=== PATIENT | female | born 1970 | race Caucasian/White ===

== ENCOUNTER 2018-08-10 17:42 | Emergency (ER) | payer OTHER ==
[2018-08-10] MEDS ORDERED: SODIUM CHLORIDE 0.9% 1,000 ML IV ONE (18:19)
[2018-08-10] MEDS ORDERED: ONDANSETRON 4 MG/2 ML VIAL IVP STA (18:19)
[2018-08-10 18:20] LABS: BILIRUBIN,URINE NEGATIVE (NEGATIVE); GLUCOSE, URINE (UA) NEGATIVE (NEGATIVE); KETONES,URINE (UA) NEGATIVE (NEGATIVE); LEUKOCYTE ESTERASE, URINE TRACE (NEGATIVE); NITRITE,URINE NEGATIVE (NEGATIVE); OCCULT BLOOD,URINE NEGATIVE (NEGATIVE); PROTEIN,URINE NEGATIVE (NEGATIVE); UROBILINOGEN,URINE 0.2 (NORMAL) E.U./dL (NORMAL)
[2018-08-10] MEDS ORDERED: FAMOTIDINE 20 MG/50 ML 50 ML IV ONE (18:21)
--- NOTE | 2018-08-10 18:27 | ED Physician Documentation ---
History of Present Illness - Stated complaint Stated Complaint: NAUSEA/DIZZINESS - Chief complaint Chief Complaint: Abd Pain - History obtained from History obtained from: Patient - History of Present Illness Timing: Last night Pain level max: 2 Pain level now: 2 Quality: Burning Radiates to: From throat down the epigastric area Improved by: Nothing Worsened by: nothing Associated symptoms: Lightheadedness, nausea, constipation 2 days - Additonal information Additional information: 48-year-old female with history of diabetes, high cholesterol, and gastric bypass 4 months ago here with complain of feeling nausea and lightheaded since last night associated with burning sensation in the mouth that radiates down to the epigastric area. Patient stated that he has not had any bowel movement the past 2 days. She denies fever, diarrhea, vomiting, trauma, travel, recent illnesses or sick contact. Review of Systems Ten Systems: 10 systems reviewed and negative Constitutional: denies: Fever, Chills Nose: denies: Rhinorrhea / runny nose Cardiac: denies: Chest pain / pressure Respiratory: denies: Dyspnea, Cough GI: reports: Abdominal Pain, Nausea, Constipation. denies: Vomiting, Diarrhea : denies: Dysuria, Frequency, Hematuria, Discharge Musculoskeletal: reports: Back pain (Pointing at the left lateral lower lumbar area). denies: Extremity pain Neurologic: denies: Generalized weakness PD PAST MEDICAL HISTORY - Past Medical History Past Medical History: Yes Cardiovascular: High cholesterol Endocrine/Autoimmune: Type 2 diabetes Psych: Depression, Anxiety - Past Surgical History Past Surgical History: Yes Ortho: Carpal Tunnel surgery /REGULATORY AFFAIRS SPEC: section, LEEP (Cervical surgery) - Present Medications Home Medications: Ambulatory Orders Medication Instructions Recorded Confirmed Atorvastatin [Lipitor] 08/10/18 Escitalopram Oxalate [Lexapro] 30 mg PO 08/10/18 Ondansetron Odt [Zofran] 4 mg TL Q6H PRN #10 tablet 08/10/18 Pantoprazole Sodium [Protonix] 08/10/18 hydrALAZINE [Apresoline] 08/10/18 08/10/18 metFORMIN [Glucophage] 1,000 mg BID 08/10/18 08/10/18 - Allergies Allergies/Adverse Reactions: Allergies Allergy/AdvReac Type Severity Reaction Status Date / Time Penicillins Allergy Hives Verified 08/10/18 17:49 trazodone Allergy Hives Verified 08/10/18 17:49 - Social History Does the pt smoke?: No Smoking Status: Never smoker Does the pt drink ETOH?: No Does the pt have substance abuse?: No - Immunizations Immunizations are current?: Yes PD ED PE NORMAL - Vitals Vital signs reviewed: Yes - General General: Alert and oriented X 3, No acute distress, Well developed/nourished - HEENT HEENT: PERRL, EOMI, Moist mucous membranes - Neck Neck: Supple, no meningeal sign - Cardiac Cardiac: RRR, No murmur - Respiratory Respiratory: No respiratory distress, Clear bilaterally - Abdomen Abdomen: Normal bowel sounds, Soft, Non tender, Non distended, No organomegaly - Back Back: No CVA TTP - Derm Derm: Warm and dry - Extremities Extremities: No deformity - Neuro Neuro: Alert and oriented X 3 - Psych Psych: Normal mood, Normal affect Results - Vitals Vitals: Vital Signs - 24 hr 08/10/18 08/10/18 17:46 21:03 Temperature 36.9 C 36.4 C L Heart Rate 69 50 L Respiratory 18 16 Rate Blood Pressure 148/76 H 114/69 O2 Saturation 98 98 Oxygen O2 Source Room air - Labs Labs: Laboratory Tests 08/10/18 08/10/18 08/10/18 18:00 18:00 18:30 WBC 7.2 RBC 4.61 Hgb 13.0 Hct 39.4 MCV 85.6 MCH 28.2 MCHC 33.0 RDW 16.4 H Plt Count 208 MPV 7.9 Neut # (Auto) 4.5 Lymph # (Auto) 2.3 Person # (Auto) 0.4 Eos # (Auto) 0.1 Baso # (Auto) 0.0 Absolute Nucleated RBC 0.00 Nucleated RBC % 0.1 Sodium Potassium Chloride Carbon Dioxide Anion Gap BUN Creatinine Estimated GFR (MDRD) Glucose Calcium Total Bilirubin AST ALT Alkaline Phosphatase Total Protein Albumin Globulin Albumin/Globulin Ratio Lipase HCG, Quant Urine Color YELLOW Urine Clarity CLOUDY Urine pH 6.0 Ur Specific [place] 1.025 1.025 Urine Protein NEGATIVE Urine Glucose (UA) NEGATIVE Urine Ketones NEGATIVE Urine Occult Blood NEGATIVE Urine Nitrite NEGATIVE Urine Bilirubin NEGATIVE Urine Urobilinogen 0.2 (NORMAL) Ur Leukocyte Esterase TRACE H Urine RBC 0-5 Urine WBC 0-3 Ur Squamous Epith Cells MOD Squamous H Urine Bacteria Few Ur Microscopic Review INDICATED Urine Culture Comments NOT INDICATED Urine HCG, Qual TNP 08/10/18 08/10/18 18:30 18:30 WBC RBC Hgb Hct MCV MCH MCHC RDW Plt Count MPV Neut # (Auto) Lymph # (Auto) Person # (Auto) Eos # (Auto) Baso # (Auto) Absolute Nucleated RBC Nucleated RBC % Sodium 137 Potassium 3.7 Chloride 103 Carbon Dioxide 27 Anion Gap 7.0 BUN 11 Creatinine 0.7 Estimated GFR (MDRD) 90 Glucose 93 Calcium 8.6 Total Bilirubin 0.5 AST 28 ALT 32 Alkaline Phosphatase 71 Total Protein 6.8 Albumin 4.4 Globulin 2.4 Albumin/Globulin Ratio 1.8 Lipase 35 HCG, Quant < 0.60 Urine Color Urine Clarity Urine pH Ur Specific [place] Urine Protein Urine Glucose (UA) Urine Ketones Urine Occult Blood Urine Nitrite Urine Bilirubin Urine Urobilinogen Ur Leukocyte Esterase Urine RBC Urine WBC Ur Squamous Epith Cells Urine Bacteria Ur Microscopic Review Urine Culture Comments Urine HCG, Qual PD MEDICAL DECISION MAKING - ED course Complexity details: re-evaluated patient (1Patient inform of CT scan results including additional findings on the spleen, adrenal gland, and lung atelectasis. Patient stated she is on antiulcer medication which she takes twice a day. States she has moved from [place] so she is looking. GI doctors able to manage her gastric bypass. Patient wants to go home on Zofran.), considered differential (Gastritis, GERD, pancreatitis, constipation, obstruction), d/w patient ([id number] updated on test results. She stated that her nausea is much better but still feels epigastric discomfort. She agreed to have a CT of the abdomen) Departure - Departure Disposition: 01 Home, Self Care Clinical Impression: Abdominal pain Qualifiers: Abdominal location: epigastric Qualified Code(s): R10.13 - Epigastric pain Condition: Stable Instructions: ED Abdominal Pain Unkn Cause Prescriptions: Ondansetron Odt [Zofran] 4 mg TL Q6H PRN #10 tablet PRN Reason: Nausea / Vomiting Comments: Follow-up with your primary doctor and GI doctor who is able to help you with managing your recent gastric bypass. Only take Zofran when really necessary for nausea. Continue your anti-ulcer medication. If worse return to the emergency.
[2018-08-10 18:28] LABS: CLARITY,URINE CLOUDY (CLEAR)
[2018-08-10 18:37] LABS: BACTERIA,URINE Few /HPF (None Seen); RBC,URINE 0-5 /HPF (0-5); SQUAMOUS EPITHELIAL CELL,UR MOD Squamous (<= Few)
[2018-08-10 19:06] LABS: BASOPHILS % (AUTO) 0.4 %; EOSINOPHILS # (AUTO) 0.1 10^3/uL (0.0-0.7); LYMPHOCYTES # (AUTO) 2.3 10^3/uL (1.5-3.5); LYMPHOCYTES % (AUTO) 31.3 %; MEAN CORPUSCULAR HEMOGLOBIN 28.2 pg (27.0-31.0); MEAN CORPUSCULAR VOLUME 85.6 fL (81.0-99.0); MEAN PLATELET VOLUME 7.9 fL (7.9-10.8); MONOCYTES # (AUTO) 0.4 10^3/uL (0.0-1.0); MONOCYTES % (AUTO) 5.1 %; NEUTROPHILS # (AUTO) 4.5 10^3/uL (1.5-6.6); NEUTROPHILS % (AUTO) 62.2 %; PLT - PLATELET COUNT 208 10^3/uL (130-450); RED BLOOD COUNT 4.61 10^6/uL (4.20-5.40); RED CELL DISTRIBUTION WIDTH 16.4 % (12.0-15.0); WHITE BLOOD COUNT 7.2 x10^3/uL (4.8-10.8)
[2018-08-10 19:21] LABS: ALBUMIN 4.4 g/dL (3.2-5.5); ALBUMIN/GLOBULIN RATIO 1.8 (1.0-2.2); BILIRUBIN,TOTAL 0.5 mg/dL (0.2-1.0); CALCIUM 8.6 mg/dL (8.5-10.3); CREATININE 0.7 mg/dL (0.4-1.0); TOTAL PROTEIN 6.8 g/dL (6.7-8.2)
[2018-08-10] MEDS ORDERED: IOPAMIDOL-300 100 ML VIAL ONE (21:12)
--- NOTE | 2018-08-10 21:57 | CT Report ---
Reason: PAIN Procedure Date: 08/10/2018 Accession Number: [id number] / [id number] Procedure: CT - Abdomen/Pelvis W/ CPT Code: FULL RESULT: EXAM: CT ABDOMEN AND PELVIS EXAM DATE: 08/10/2018 09:36 PM. CLINICAL HISTORY: Abdominal pain. Patient is status post gastric bypass 4 months prior to this examination. COMPARISONS: None. TECHNIQUE: Routine helical CT imaging was performed through the abdomen and pelvis. IV contrast: 100 mL of Isovue-300. Enteric contrast: No. Reconstructions: Coronal and sagittal. In accordance with CT protocol optimization, one or more of the following dose reduction techniques were utilized for this exam: automated exposure control, adjustment of mA and/or KV based on patient size, or use of iterative reconstructive technique. FINDINGS: Lung Bases: Small left pleural effusion with passive atelectasis in the left lung base. The remainder of the lung bases is clear. Liver: Normal. No masses. Gallbladder/Bile Ducts: Unremarkable. Spleen: Small superior subcapsular splenic cysts measuring 9 mm and 4 mm in diameter. Otherwise, normal enhancement. Pancreas: Normal. Adrenal Glands: Right adrenal adenoma measuring 2.7 cm in diameter (series 3 image 17). Kidneys: Normal. No masses or hydronephrosis. Peritoneal Cavity/Bowel: Postsurgical changes of gastric bypass. Greater than physiologic stool throughout the colon, mild in amount. No bowel obstruction. No free fluid, free air or adenopathy. No masses or acute inflammatory process. I do not identify the appendix. Pelvic Organs: The bladder is decompressed. Uterus and adnexal structures are unremarkable. No free fluid in the pelvis. Vasculature: No aneurysms or other significant abnormality. Bones: No significant abnormality. Other: None. IMPRESSION: 1. Postsurgical changes of gastric bypass. 2. Absent appendix. 3. Small subcapsular splenic cysts. 4. Small left pleural effusion with passive atelectasis in the left lower lobe. 5. Right adrenal adenoma measuring 2.7 cm in diameter. RADIA
[2018-08-10 22:30] VITALS: BP 131/66
[2018-08-10] MEDS ORDERED: IOPAMIDOL-300 100 ML VIAL IVP ONE (22:38)
== END 2018-08-10 22:34 | disposition home or self-care (01) ==
LOC: ED 17:42
DX: R10.13 Epigastric pain (principal); E11.9 Type 2 diabetes mellitus without complications; Z98.84 Bariatric surgery status; Z79.84 Long term (current) use of oral hypoglycemic drugs
CPT/HCPCS: 36415; 74177; 80053; 81001; 83690; 84702; 85025; 96365; 96375; 99283; Q9967; 81003; 81025; 87086

== ENCOUNTER 2018-09-02 20:12 | Emergency (ER) | payer OTHER ==
[2018-09-02 20:19] VITALS: BP 139/74
[2018-09-02] MEDS ORDERED: NITROFURANTOIN MACRO 100 MG CAPSULE PO STA (20:23)
[2018-09-02] MEDS ORDERED: PHENAZOPYRIDINE 100 MG TABLET PO STA (20:23)
[2018-09-02 20:24] LABS: BILIRUBIN,URINE NEGATIVE (NEGATIVE); GLUCOSE, URINE (UA) NEGATIVE (NEGATIVE); KETONES,URINE (UA) NEGATIVE (NEGATIVE); LEUKOCYTE ESTERASE, URINE SMALL (NEGATIVE); NITRITE,URINE NEGATIVE (NEGATIVE); OCCULT BLOOD,URINE MODERATE (NEGATIVE); PH,URINE 5.5 PH (5.0-7.5); PROTEIN,URINE NEGATIVE (NEGATIVE); UROBILINOGEN,URINE 0.2 (NORMAL) E.U./dL (NORMAL)
--- NOTE | 2018-09-02 20:25 | ED Physician Documentation ---
PD HPI FEMALE - Stated complaint Stated Complaint: FEMALE - Chief complaint Chief Complaint: UTI - History obtained from History obtained from: Patient - History of Present Illness Timing - onset: Today Timing - duration: Days (1) Timing - details: Gradual onset Pain level max: 5 Pain level max: 4 Associated symptoms: Dysuria, Urinary frequency, Hematuria. No: Fever, Abdominal pain, Back pain, Vaginal pain, Vaginal bleeding, Vaginal discharge Contributing factors: No: Similar symptoms before: Diagnosis (UTI) Review of Systems Constitutional: denies: Fever, Chills GI: denies: Abdominal Pain, Vomiting Skin: denies: Rash PD PAST MEDICAL HISTORY - Past Medical History Past Medical History: Yes Cardiovascular: High cholesterol Respiratory: None Neuro: None Endocrine/Autoimmune: Type 2 diabetes GI: None FORECLOSURE SPECIALIST: None : None HEENT: None Psych: Depression, Anxiety Musculoskeletal: None Derm: None - Past Surgical History Past Surgical History: Yes Ortho: Carpal Tunnel surgery /FORECLOSURE SPECIALIST: section, LEEP (Cervical surgery) - Present Medications Home Medications: Ambulatory Orders Medication Instructions Recorded Confirmed Atorvastatin [Lipitor] 08/10/18 Escitalopram Oxalate [Lexapro] 30 mg PO 08/10/18 Ondansetron Odt [Zofran] 4 mg TL Q6H PRN #10 tablet 08/10/18 Pantoprazole Sodium [Protonix] 08/10/18 hydrALAZINE [Apresoline] 08/10/18 08/10/18 metFORMIN [Glucophage] 1,000 mg BID 08/10/18 08/10/18 Nitrofurantoin Monohyd/M-Cryst 100 mg PO BID #10 capsule 09/02/18 [Macrobid 100 mg Capsule] Phenazopyridine HCl [Pyridium] 200 mg PO TID PRN #6 tablet 09/02/18 - Allergies Allergies/Adverse Reactions: Allergies Allergy/AdvReac Type Severity Reaction Status Date / Time Iodinated Contrast- Oral and Allergy Rash Verified 09/02/18 20:20 IV Dye Penicillins Allergy Hives Verified 09/02/18 20:20 trazodone Allergy Hives Verified 09/02/18 20:20 - Social History Does the pt smoke?: No Smoking Status: Never smoker Does the pt drink ETOH?: No Does the pt have substance abuse?: No - Immunizations Immunizations are current?: Yes - POLST Patient has POLST: No PD ED PE NORMAL - Vitals Vital signs reviewed: Yes - General General: Alert and oriented X 3, No acute distress - HEENT HEENT: Moist mucous membranes - Neck Neck: Supple, no meningeal sign - Cardiac Cardiac: RRR - Respiratory Respiratory: No respiratory distress, Clear bilaterally - Abdomen Abdomen: Soft, Non tender, Non distended - Back Back: No CVA TTP - Derm Derm: No rash - Neuro Neuro: Alert and oriented X 3 Results - Vitals Vitals: Vital Signs - 24 hr 09/02/18 09/02/18 09/02/18 20:18 20:20 20:30 Temperature 36.7 C Heart Rate 62 Respiratory 16 17 17 Rate Blood Pressure 139/74 H O2 Saturation 98 Oxygen O2 Source Room air - Labs Labs: Laboratory Tests 09/02/18 09/02/18 20:18 20:18 Urine Color YELLOW Urine Clarity CLEAR Urine pH 5.5 Ur Specific [place] 1.020 1.020 Urine Protein NEGATIVE Urine Glucose (UA) NEGATIVE Urine Ketones NEGATIVE Urine Occult Blood MODERATE H Urine Nitrite NEGATIVE Urine Bilirubin NEGATIVE Urine Urobilinogen 0.2 (NORMAL) Ur Leukocyte Esterase SMALL H Urine RBC 0-5 Urine WBC 6-10 H Ur Squamous Epith Cells RARE Squamous Urine Bacteria Few Ur Microscopic Review INDICATED Urine Culture Comments INDICATED Urine HCG, Qual NEGATIVE PD MEDICAL DECISION MAKING - ED course Complexity details: considered differential, d/w patient ED course: Patient with a UTI. Will place on Pyridium and Macrobid. We will have her follow-up with her doctor for further care. No pyelonephritis. No fevers. No sepsis. Patient counseled regarding signs and symptoms for which I believe and urgent re-evaluation would be necessary. Patient with good understanding of and agreement to plan and is comfortable going home at this time This document was made in part using voice recognition software. While efforts are made to proofread this document, sound alike and grammatical errors may occur. Departure - Departure Disposition: 01 Home, Self Care Clinical Impression: Urinary tract infection Qualifiers: Urinary tract infection type: acute cystitis Hematuria presence: with hematuria Qualified Code(s): N30.01 - Acute cystitis with hematuria Condition: Good Instructions: ED UTI Cystitis Female Follow-Up: Eduardo Cam ARNP [Primary Care Provider] - (if not better after treatment) Prescriptions: Nitrofurantoin Monohyd/M-Cryst [Macrobid 100 mg Capsule] 100 mg PO BID #10 capsule Phenazopyridine HCl [Pyridium] 200 mg PO TID PRN #6 tablet PRN Reason: dysuria Comments: Take all antibiotics until gone. Return if you worsen. Discharge Date/Time: 09/02/18 20:30
[2018-09-02 20:31] LABS: CLARITY,URINE CLEAR (CLEAR); HCG UR QUAL NEGATIVE
[2018-09-02 20:32] LABS: BACTERIA,URINE Few /HPF (None Seen); RBC,URINE 0-5 /HPF (0-5); SQUAMOUS EPITHELIAL CELL,UR RARE Squamous (<= Few)
== END 2018-09-02 20:30 | disposition home or self-care (01) ==
LOC: ED 20:12
DX: N30.01 Acute cystitis with hematuria (principal); E11.9 Type 2 diabetes mellitus without complications
CPT/HCPCS: 81001; 81025; 87086; 87181; 99283; A9270; 81003

== ENCOUNTER 2018-10-05 07:24 | Day surgery (SDC) | payer OTHER ==
[~2018-10-05 07:24] MED LIST: LACTATED RINGERS 1,000 ML IV ONE
[2018-10-05 07:47] LABS: HCG UR QUAL NEGATIVE
[2018-10-05] MEDS ORDERED: LIDO GARGLE 30 ML BOTTLE ONE (08:25)
[2018-10-05] MEDS ORDERED: MIDAZOLAM 2 MG/2 ML VIAL IVP ONE (09:00)
[2018-10-05] MEDS ORDERED: LACTATED RINGERS 1,000 ML IV ONE ×2 (09:00→09:36)
[2018-10-05] MEDS ORDERED: fentaNYL 250 MCG/5 ML VIAL IVP ONE (09:00)
[2018-10-05] MEDS ORDERED: LIDO GARGLE 30 ML BOTTLE PO ONE (09:07)
[2018-10-05 10:02] VITALS: BP 112/62
== END 2018-10-05 07:25 | disposition home or self-care (01) ==
LOC: SDS 07:24
PROVIDERS: ATTEND Internal Medicine Gastroenterology
PROC: 0DBN8ZZ Excision of Sigmoid Colon, Via Natural or Artificial Opening Endoscopic (ICD-10-PCS; 2018-10-05)
PROC: 0DB68ZZ Excision of Stomach, Via Natural or Artificial Opening Endoscopic (ICD-10-PCS; 2018-10-05)
PROC: 0DBM8ZZ Excision of Descending Colon, Via Natural or Artificial Opening Endoscopic (ICD-10-PCS; principal; 2018-10-05 08:30)
PROC: 0DBK8ZZ Excision of Ascending Colon, Via Natural or Artificial Opening Endoscopic (ICD-10-PCS; 2018-10-05 08:30)
DX: K31.7 Polyp of stomach and duodenum (principal); K63.5 Polyp of colon; D12.2 Benign neoplasm of ascending colon; D12.5 Benign neoplasm of sigmoid colon; R10.13 Epigastric pain; K92.1 Melena; Z98.84 Bariatric surgery status
CPT/HCPCS: 43239; 45380; 45385; 81025; A9270; J3010; J7120

== ENCOUNTER 2018-11-11 09:18 | Emergency (ER) | payer OTHER ==
[2018-11-11 09:33] VITALS: BP 135/74
[2018-11-11 09:45] LABS: BILIRUBIN,URINE NEGATIVE (NEGATIVE); GLUCOSE, URINE (UA) NEGATIVE (NEGATIVE); KETONES,URINE (UA) NEGATIVE (NEGATIVE); LEUKOCYTE ESTERASE, URINE SMALL (NEGATIVE); NITRITE,URINE POSITIVE (NEGATIVE); OCCULT BLOOD,URINE TRACE-INTA (NEGATIVE); PH,URINE 6.5 PH (5.0-7.5); PROTEIN,URINE NEGATIVE (NEGATIVE); UROBILINOGEN,URINE 0.2 (NORMAL) E.U./dL (NORMAL)
[2018-11-11 09:47] LABS: CLARITY,URINE SL. CLOUDY (CLEAR); HCG UR QUAL NEGATIVE
[2018-11-11 09:58] LABS: BACTERIA,URINE Few /HPF (None Seen); CRYSTALS,URINE 0-2 Calcium Oxalate /LPF; RBC,URINE 0-5 /HPF (0-5); SQUAMOUS EPITHELIAL CELL,UR MOD Squamous (<= Few)
--- NOTE | 2018-11-11 10:27 | ED Physician Documentation ---
PD HPI FEMALE - Stated complaint Stated Complaint: FEM - Chief complaint Chief Complaint: UTI - History obtained from History obtained from: Patient - History of Present Illness Timing - onset: Enter time (0600), Today Timing - duration: Hours Timing - details: Abrupt onset, Still present Associated symptoms: Dysuria, Urinary frequency Contributing factors: No: Similar symptoms before: Diagnosis (UTI) Recently seen: Not recently seen - Additional information Additional information: 48-year-old female with a history of bariatric surgery and frequent urinary tract infections has developed urinary symptoms again this morning. She is last had an infection about 1 month ago and this was not sensitive to Macrobid. She required a prescription for Septra. She denies any nausea with this she denies any flank pain. Review of Systems Constitutional: denies: Fever, Chills, Myalgias Eyes: denies: Decreased vision Ears: denies: Ear pain Nose: denies: Congestion Throat: denies: Sore throat Respiratory: denies: Cough GI: denies: Abdominal Pain, Nausea, Vomiting, Constipation, Diarrhea : reports: Dysuria, Frequency Skin: denies: Rash Musculoskeletal: denies: Neck pain, Back pain, Extremity pain Neurologic: denies: Generalized weakness, Focal weakness, Numbness PD PAST MEDICAL HISTORY - Past Medical History Past Medical History: Yes Cardiovascular: High cholesterol Respiratory: None Neuro: None Endocrine/Autoimmune: Type 2 diabetes GI: None CLINICAL CODER: None : None HEENT: None Psych: Depression, Anxiety, Panic attacks Musculoskeletal: None Derm: None - Past Surgical History Past Surgical History: Yes Ortho: Carpal Tunnel surgery /CLINICAL CODER: section HEENT: Tonsil/Adenoidectomy - Present Medications Home Medications: Ambulatory Orders Medication Instructions Recorded Confirmed Atorvastatin [Lipitor] 10 mg PO DAILY 08/10/18 10/05/18 Escitalopram Oxalate [Lexapro] 30 mg PO DAILY 08/10/18 10/05/18 Ondansetron Odt [Zofran] 4 mg TL Q6H PRN #10 tablet 08/10/18 10/05/18 Pantoprazole Sodium [Protonix] 20 mg PO DAILY 08/10/18 10/05/18 RX: hydrALAZINE [Apresoline] 10 mg PO DAILY 08/10/18 10/05/18 RX: metFORMIN [Glucophage] 1,000 mg PO BID 08/10/18 10/05/18 Phenazopyridine HCl [Pyridium] 200 mg PO TID PRN #6 tablet 09/02/18 10/05/18 Sulfamethoxazole/Trimethoprim 1 each PO BID #10 tablet 11/11/18 [Sulfamethoxazole-Tmp Ds Tablet] - Allergies Allergies/Adverse Reactions: Allergies Allergy/AdvReac Type Severity Reaction Status Date / Time Iodinated Contrast- Oral and Allergy Rash Verified 11/11/18 09:33 IV Dye Penicillins Allergy Hives Verified 11/11/18 09:33 trazodone Allergy Hives Verified 11/11/18 09:33 - Social History Does the pt smoke?: No Smoking Status: Never smoker Does the pt drink ETOH?: No Does the pt have substance abuse?: No - Immunizations Immunizations are current?: Yes - POLST Patient has POLST: No PD ED PE NORMAL - Vitals Vital signs reviewed: Yes (hypertensive) - General General: Alert and oriented X 3, No acute distress, Well developed/nourished - HEENT HEENT: Atraumatic, PERRL - Neck Neck: Supple, no meningeal sign - Respiratory Respiratory: No respiratory distress - Back Back: No CVA TTP, No spinal TTP - Derm Derm: Normal color, Warm and dry, No rash - Extremities Extremities: No deformity, No edema - Neuro Neuro: Alert and oriented X 3, industrial safety and health manager 2-12 intact, No motor deficit, No sensory deficit, Normal speech Eye Opening: Spontaneous Motor: Obeys Commands Verbal: Oriented GCS Score: 15 - Psych Psych: Normal mood, Normal affect Results - Vitals Vitals: Vital Signs - 24 hr 11/11/18 09:30 Temperature 36.3 C L Heart Rate 98 Respiratory 14 Rate Blood Pressure 135/74 H O2 Saturation 97 Oxygen O2 Source Room air - Labs Labs: Laboratory Tests 11/11/18 11/11/18 09:24 09:24 Urine Color YELLOW Urine Clarity [place]. CLOUDY Urine pH 6.5 Ur Specific [place] 1.025 1.025 Urine Protein NEGATIVE Urine Glucose (UA) NEGATIVE Urine Ketones NEGATIVE Urine Occult Blood TRACE-INTA Urine Nitrite POSITIVE H Urine Bilirubin NEGATIVE Urine Urobilinogen 0.2 (NORMAL) Ur Leukocyte Esterase SMALL H Urine RBC 0-5 Urine WBC >25 H Ur Squamous Epith Cells MOD Squamous H Urine Crystals 0-2 Calcium Oxalate Urine Bacteria Few Ur Microscopic Review INDICATED Urine Culture Comments NOT INDICATED Urine HCG, Qual NEGATIVE PD MEDICAL DECISION MAKING - ED course Complexity details: reviewed results, re-evaluated patient, considered differential, d/w patient ED course: 48-year-old female with history of urinary tract infections has another infection. She does not appear to have any evidence of Wai. Departure - Departure Disposition: Home, Self Care Clinical Impression: Urinary tract infection Condition: Stable Instructions: ED UTI Cystitis Female Follow-Up: Eduardo Cam ARNP [Primary Care Provider] - Prescriptions: Sulfamethoxazole/Trimethoprim [Sulfamethoxazole-Tmp Ds Tablet] 1 each PO BID #10 tablet Discharge Date/Time: 11/11/18 10:30
== END 2018-11-11 10:30 | disposition home or self-care (01) ==
LOC: ED 09:18
DX: N39.0 Urinary tract infection, site not specified (principal); Z87.440 Personal history of urinary (tract) infections; Z98.84 Bariatric surgery status
CPT/HCPCS: 81001; 81003; 81025; 87086; 99283

== ENCOUNTER 2019-01-03 13:02 | Emergency (ER) | payer OTHER ==
[2019-01-03] MEDS ORDERED: PHENAZOPYRIDINE 100 MG TABLET PO STA (13:07)
[2019-01-03] MEDS ORDERED: SULFAMETH/TRIMETH DS 800/160 MG TABLET PO STA (13:07)
[2019-01-03 13:08] VITALS: BP 138/79
--- NOTE | 2019-01-03 13:11 | ED Physician Documentation ---
PD HPI FEMALE - Stated complaint Stated Complaint: UTI - History obtained from History obtained from: Patient - History of Present Illness Timing - onset: Today Timing - duration: Days (1) Timing - details: Abrupt onset Pain level max: 2 Pain level max: 1 Associated symptoms: Dysuria, Urinary frequency. No: Fever, Abdominal pain, Back pain, Pelvic pain Contributing factors: No: , control, Oral contraceptive, Depo, IUD, Condoms, Tubal ligation, Hysterectomy, Sexually active, Not sexually active, Exposed to STD Similar symptoms before: Diagnosis (UTI) Recently seen: Not recently seen Review of Systems Constitutional: denies: Fever Cardiac: denies: Chest pain / pressure Respiratory: denies: Cough GI: denies: Vomiting, Diarrhea : reports: Dysuria, Frequency, Hesitancy. denies: Now EGA Skin: denies: Rash PD PAST MEDICAL HISTORY - Past Medical History Cardiovascular: High cholesterol Respiratory: None Neuro: None Endocrine/Autoimmune: Type 2 diabetes GI: None HALFTONE OPERATOR: None : None HEENT: None Psych: Depression, Anxiety, Panic attacks Musculoskeletal: None Derm: None - Past Surgical History Past Surgical History: Yes Ortho: Carpal Tunnel surgery /HALFTONE OPERATOR: section HEENT: Tonsil/Adenoidectomy - Present Medications Home Medications: Ambulatory Orders Medication Instructions Recorded Confirmed Atorvastatin [Lipitor] 10 mg PO DAILY 08/10/18 10/05/18 Escitalopram Oxalate [Lexapro] 30 mg PO DAILY 08/10/18 10/05/18 Ondansetron Odt [Zofran] 4 mg TL Q6H PRN #10 tablet 08/10/18 10/05/18 Pantoprazole Sodium [Protonix] 20 mg PO DAILY 08/10/18 10/05/18 hydrALAZINE [Apresoline] 10 mg PO DAILY 08/10/18 10/05/18 metFORMIN [Glucophage] 1,000 mg PO BID 08/10/18 10/05/18 Phenazopyridine HCl [Pyridium] 200 mg PO TID PRN #6 tablet 09/02/18 10/05/18 Sulfamethoxazole/Trimethoprim 1 each PO BID #10 tablet 11/11/18 [Sulfamethoxazole-Tmp Ds Tablet] Phenazopyridine HCl [Pyridium] 200 mg PO TID PRN #6 tablet 01/03/19 Sulfamethox/Trimeth 800/160 1 each PO BID #10 tablet 01/03/19 [Bactrim Ds 800/160] - Allergies Allergies/Adverse Reactions: Allergies Allergy/AdvReac Type Severity Reaction Status Date / Time Iodinated Contrast- Oral and Allergy Rash Verified 11/11/18 09:33 IV Dye Penicillins Allergy Hives Verified 11/11/18 09:33 trazodone Allergy Hives Verified 11/11/18 09:33 - Social History Does the pt smoke?: No Smoking Status: Never smoker Does the pt drink ETOH?: No Does the pt have substance abuse?: No - Immunizations Immunizations are current?: Yes - POLST Patient has POLST: No PD ED PE NORMAL - Vitals Vital signs reviewed: Yes - General General: Alert and oriented X 3, No acute distress - HEENT HEENT: Moist mucous membranes - Neck Neck: Supple, no meningeal sign - Abdomen Abdomen: Soft, Non tender, Non distended - Back Back: No CVA TTP - Derm Derm: Warm and dry - Neuro Neuro: Alert and oriented X 3 Results - Vitals Vitals: Vital Signs - 24 hr 01/03/19 13:05 Temperature 36.6 C Heart Rate 87 Respiratory 16 Rate Blood Pressure 138/79 H O2 Saturation 100 Oxygen O2 Source Room air - Labs Labs: Laboratory Tests 01/03/19 13:12 Urine Color YELLOW Urine Clarity CLEAR Urine pH 6.0 Ur Specific [place] >=1.030 H Urine Protein NEGATIVE Urine Glucose (UA) NEGATIVE Urine Ketones NEGATIVE Urine Occult Blood TRACE-LYSE Urine Nitrite NEGATIVE Urine Bilirubin NEGATIVE Urine Urobilinogen 0.2 (NORMAL) Ur Leukocyte Esterase SMALL H Ur Microscopic Review INDICATED Urine Culture Comments Not Reportable Urine HCG, Qual NEGATIVE PD MEDICAL DECISION MAKING - ED course Complexity details: reviewed results, re-evaluated patient, considered differential, d/w patient ED course: 48-year-old female with a UTI. She states that Bactrim has worked in the past and the Macrobid has not. She is allergic to penicillin. Will place on Pyridium and Bactrim and follow-up with her doctor if she fails to improve. Patient counseled regarding signs and symptoms for which I believe and urgent re-evaluation would be necessary. Patient with good understanding of and agreement to plan and is comfortable going home at this time This document was made in part using voice recognition software. While efforts are made to proofread this document, sound alike and grammatical errors may occur. Patient is well-appearing, nontoxic. Afebrile. No evidence of pyelonephritis. Departure - Departure Disposition: 01 Home, Self Care Clinical Impression: Urinary tract infection Qualifiers: Urinary tract infection type: acute cystitis Hematuria presence: without hematuria Qualified Code(s): N30.00 - Acute cystitis without hematuria Condition: Good Instructions: ED UTI Cystitis Female Follow-Up: Eduardo Cam ARNP [Primary Care Provider] - As Needed Prescriptions: Phenazopyridine HCl [Pyridium] 200 mg PO TID PRN #6 tablet PRN Reason: dysuria Sulfamethox/Trimeth 800/160 [Bactrim Ds 800/160] 1 each PO BID #10 tablet Comments: Take all antibiotics until gone. Return if you worsen. Follow-up with your doctor for further care. Discharge Date/Time: 01/03/19 13:14
[2019-01-03 13:33] LABS: BILIRUBIN,URINE NEGATIVE (NEGATIVE); GLUCOSE, URINE (UA) NEGATIVE (NEGATIVE); KETONES,URINE (UA) NEGATIVE (NEGATIVE); LEUKOCYTE ESTERASE, URINE SMALL (NEGATIVE); NITRITE,URINE NEGATIVE (NEGATIVE); OCCULT BLOOD,URINE TRACE-LYSE (NEGATIVE); PROTEIN,URINE NEGATIVE (NEGATIVE); UROBILINOGEN,URINE 0.2 (NORMAL) E.U./dL (NORMAL)
[2019-01-03 13:36] LABS: CLARITY,URINE CLEAR (CLEAR); HCG UR QUAL NEGATIVE
[2019-01-03 13:55] LABS: BACTERIA,URINE Many /HPF (None Seen); SQUAMOUS EPITHELIAL CELL,UR FEW Squamous (<= Few)
== END 2019-01-03 13:14 | disposition home or self-care (01) ==
LOC: ED 13:02
DX: N30.00 Acute cystitis without hematuria (principal); E78.00 Pure hypercholesterolemia, unspecified; E11.9 Type 2 diabetes mellitus without complications
CPT/HCPCS: 81001; 81025; 87077; 87086; 87181; 99283; A9270; 81003

== ENCOUNTER 2019-02-18 14:22 | Observation (INO) | payer BC, OTHER ==
--- NOTE | 2019-02-18 14:26 | ED Physician Documentation ---
PD HPI ABD PAIN - Stated complaint Stated Complaint: ABD PX - History obtained from History obtained from: Patient - History of Present Illness Timing - onset: Today (48-year-old woman who had gastric bypass about a year ago in [place] presents with sudden right upper quadrant pain starting after lunch today. She is been in moderate to severe pain for about 2 hours now. No history of gallstones, she did not have a cholecystectomy during her bypass.) Review of Systems Ten Systems: 10 systems reviewed and negative Constitutional: reports: Reviewed and negative Cardiac: reports: Reviewed and negative Respiratory: reports: Reviewed and negative PD PAST MEDICAL HISTORY - Past Medical History Cardiovascular: High cholesterol Respiratory: None Neuro: None Endocrine/Autoimmune: Type 2 diabetes GI: None TEAM OTR TRUCK DRIVER: None : None HEENT: None Psych: Depression, Anxiety, Panic attacks Musculoskeletal: None Derm: None - Past Surgical History Past Surgical History: Yes Ortho: Carpal Tunnel surgery /TEAM OTR TRUCK DRIVER: section HEENT: Tonsil/Adenoidectomy - Present Medications Home Medications: Ambulatory Orders Medication Instructions Recorded Confirmed Atorvastatin [Lipitor] 10 mg PO DAILY 08/10/18 02/18/19 Pantoprazole Sodium [Protonix] 20 mg PO DAILY 08/10/18 02/18/19 hydrALAZINE [Apresoline] 10 mg PO DAILY 08/10/18 02/18/19 - Allergies Allergies/Adverse Reactions: Allergies Allergy/AdvReac Type Severity Reaction Status Date / Time Iodinated Contrast- Oral and Allergy Rash Verified 02/18/19 14:30 IV Dye Penicillins Allergy Hives Verified 02/18/19 14:30 trazodone Allergy Hives Verified 02/18/19 14:30 - Social History Does the pt smoke?: No Smoking Status: Never smoker Does the pt drink ETOH?: No Does the pt have substance abuse?: No - Immunizations Immunizations are current?: Yes - POLST Patient has POLST: No PD ED PE NORMAL - Vitals Vital signs reviewed: Yes - General General: Alert and oriented X 3, No acute distress - HEENT HEENT: PERRL, EOMI - Neck Neck: Supple, no meningeal sign, No bony TTP - Cardiac Cardiac: RRR, No murmur - Respiratory Respiratory: No respiratory distress, Clear bilaterally - Abdomen Abdomen: Other (Soft with focal tenderness in the right upper quadrant and positive Pringle sign) - Back Back: No CVA TTP, No spinal TTP - Derm Derm: Normal color, Warm and dry - Extremities Extremities: No edema, No calf tenderness / cord - Neuro Neuro: Alert and oriented X 3, Normal speech - Psych Psych: Normal mood, Normal affect Results - Vitals Vitals: Vital Signs - 24 hr 02/18/19 02/18/19 02/18/19 14:28 16:40 18:53 Temperature 36.2 C L 36.9 C Heart Rate 77 71 64 Respiratory 16 12 16 Rate Blood Pressure 147/89 H 147/79 H 145/76 H O2 Saturation 98 95 95 Oxygen O2 Source Room air - Labs Labs: Laboratory Tests 02/18/19 02/18/19 02/18/19 14:35 14:35 15:38 WBC 5.8 RBC 4.18 L Hgb 12.0 Hct 35.5 L MCV 85.0 MCH 28.6 MCHC 33.7 RDW 13.2 Plt Count 243 MPV 7.8 L Neut # (Auto) 3.9 Lymph # (Auto) 1.6 Stafford # (Auto) 0.3 Eos # (Auto) 0.0 Baso # (Auto) 0.0 Absolute Nucleated RBC 0.00 Nucleated RBC % 0.0 Sodium 141 Potassium 4.1 Chloride 102 Carbon Dioxide 29 Anion Gap 10.0 BUN 11 Creatinine 0.6 Estimated GFR (MDRD) 107 Glucose 101 H Calcium 8.8 Total Bilirubin 0.5 AST 56 H ALT 104 H Alkaline Phosphatase 93 Total Protein 7.0 Albumin 4.3 Globulin 2.7 Albumin/Globulin Ratio 1.6 Lipase 40 Urine Color YELLOW Urine Clarity CLEAR Urine pH 7.0 Ur Specific Cartwright 1.010 Urine Protein NEGATIVE Urine Glucose (UA) NEGATIVE Urine Ketones NEGATIVE Urine Occult Blood TRACE-INTA Urine Nitrite NEGATIVE Urine Bilirubin NEGATIVE Urine Urobilinogen 0.2 (NORMAL) Ur Leukocyte Esterase NEGATIVE Ur Microscopic Review NOT INDICATED Urine Culture Comments NOT INDICATED - Rads (name of study) RUQ sono Radiology: EMP read contemporaneously (3x4mm gallbaldder polyp. no gallstones) Ct A/P with IV and PO contrast Radiology: EMP read contemporaneously (Stable adrenal adenoma and chgs c/w gastric bypass, NAD) PD MEDICAL DECISION MAKING - ED course ED course: 48-year-old woman with severe right upper quadrant pain concerning for biliary etiology. Her ultrasound was negative. Labs show very mild transaminitis. CT was otherwise negative. Spoke with the on-call surgeon, Dr. Ledezma who defers to medicine for admission. It would be useful to bring her in for a HIDA scan in the setting of uncontrolled abdominal pain. I spoke with Dr. Phillips for admission. He brought to my attention that HIDA scanning may not be available tomorrow given the holiday. I offered to the patient to transfer to the [facility] for potential more expedited work-up which she declined. Departure - Departure Disposition: ED Place in Observation Clinical Impression: Abdominal pain Qualifiers: Abdominal location: right upper quadrant Qualified Code(s): R10.11 - Right upper quadrant pain Condition: Stable
[2019-02-18] MEDS ORDERED: HYDROmorphone 1 MG/ML CARPUJECT IVP STA ×3 (14:34→19:38)
[2019-02-18] MEDS ORDERED: ONDANSETRON 4 MG/2 ML VIAL IVP STA (14:34)
[2019-02-18 14:43] LABS: BASOPHILS % (AUTO) 0.1 %; LYMPHOCYTES # (AUTO) 1.6 10^3/uL (1.5-3.5); MEAN CORPUSCULAR HEMOGLOBIN 28.6 pg (27.0-31.0); MEAN CORPUSCULAR HGB CONC 33.7 g/dL (32.0-36.0); MEAN PLATELET VOLUME 7.8 fL (7.9-10.8); MONOCYTES # (AUTO) 0.3 10^3/uL (0.0-1.0); MONOCYTES % (AUTO) 5.6 %; NEUTROPHILS # (AUTO) 3.9 10^3/uL (1.5-6.6); NEUTROPHILS % (AUTO) 67.3 %; PLT - PLATELET COUNT 243 10^3/uL (130-450); RED BLOOD COUNT 4.18 10^6/uL (4.20-5.40); RED CELL DISTRIBUTION WIDTH 13.2 % (12.0-15.0); WHITE BLOOD COUNT 5.8 x10^3/uL (4.8-10.8)
[2019-02-18 14:55] LABS: ALBUMIN 4.3 g/dL (3.2-5.5); ALBUMIN/GLOBULIN RATIO 1.6 (1.0-2.2); BILIRUBIN,TOTAL 0.5 mg/dL (0.2-1.0); CALCIUM 8.8 mg/dL (8.5-10.3); CREATININE 0.6 mg/dL (0.4-1.0)
--- NOTE | 2019-02-18 15:40 | Ultrasound Report ---
Reason: RUQ pain Procedure Date: 02/18/2019 Accession Number: [id number] / [id number] Procedure: US - Abdomen Limited CPT Code: FULL RESULT: EXAM: ABDOMEN ULTRASOUND LIMITED, RUQ EXAM DATE: 02/18/2019 03:19 PM. CLINICAL HISTORY: RUQ pain. COMPARISON: ABDOMEN/PELVIS W/ 08/10/2018 9:26 PM. TECHNIQUE: Real-time scanning was performed with static images obtained. FINDINGS: Liver: Mildly enlarged measuring 19.0 cm. Main portal vein flow: Hepatopetal. Gallbladder: There is a non-mobile lesion in the gallbladder wall, likely a polyp measuring 3 x 4 mm. No gallbladder wall thickening, intraluminal stones, or pericholecystic fluid. Sonographic Pringle's sign reported as negative. Biliary System: CBD measures 3 mm. No intrahepatic or extrahepatic ductal dilatation. Other: The visualized right kidney is unremarkable. Suprarenal lesion measuring 2.2 x 1.9 x 2.0 cm likely represents the adrenal adenoma seen on the prior CT. IMPRESSION: No evidence of cholelithiasis or acute cholecystitis. Gallbladder wall polyp measuring up to 4 mm in diameter. A gallbladder wall polyp of this size could be followed up with serial imaging, although no consensus has been agreed upon as the risk of malignancy is extremely rare. Consider follow-up gallbladder ultrasound in 12 months. Mild hepatomegaly. RADIA
[2019-02-18] MEDS ORDERED: IOVERSOL 320 50 ML VIAL ONE (16:00)
[2019-02-18] MEDS ORDERED: IOVERSOL 320 100 ML VIAL IVP ONE ×2 (16:00→17:20)
[2019-02-18 16:13] LABS: BILIRUBIN,URINE NEGATIVE (NEGATIVE); GLUCOSE, URINE (UA) NEGATIVE (NEGATIVE); KETONES,URINE (UA) NEGATIVE (NEGATIVE); LEUKOCYTE ESTERASE, URINE NEGATIVE (NEGATIVE); NITRITE,URINE NEGATIVE (NEGATIVE); OCCULT BLOOD,URINE TRACE-INTA (NEGATIVE); PROTEIN,URINE NEGATIVE (NEGATIVE); UROBILINOGEN,URINE 0.2 (NORMAL) E.U./dL (NORMAL)
[2019-02-18 16:19] LABS: CLARITY,URINE CLEAR (CLEAR)
[2019-02-18] MEDS ORDERED: diphenhydrAMINE INJ 50 MG/ML VIAL IVP STA (16:21)
[2019-02-18] MEDS ORDERED: IOVERSOL 320 50 ML VIAL PO ONE (17:20)
--- NOTE | 2019-02-18 18:08 | CT Report ---
Reason: IV and PO, RUQ pain s/p remote gastric bypass Procedure Date: 02/18/2019 Accession Number: [id number] / [id number] Procedure: CT - Abdomen/Pelvis W CPT Code: FULL RESULT: EXAM: CT ABDOMEN AND PELVIS EXAM DATE: 02/18/2019 05:19 PM. CLINICAL HISTORY: Right upper quadrant pain. Remote history of gastric bypass surgery. COMPARISONS: ABDOMEN/PELVIS W/ 08/10/2018 9:26 PM ABDOMEN LIMITED 02/18/2019 2:49 PM. TECHNIQUE: Routine helical CT imaging was performed through the abdomen and pelvis. IV contrast: 80 mL Optiray 320. Enteric contrast: Yes. Reconstructions: Coronal and sagittal. In accordance with CT protocol optimization, one or more of the following dose reduction techniques were utilized for this exam: automated exposure control, adjustment of mA and/or KV based on patient size, or use of iterative reconstructive technique. FINDINGS: Lung Bases: Mild dependent atelectasis. Liver: Normal. No focal hepatic lesion. Gallbladder/Bile Ducts: Unremarkable. No visualized stones or biliary ductal dilatation. Spleen: Normal size. Multiple (at least 5) unchanged small circumscribed hypoattenuating foci in the superior spleen measuring up to 13 mm, indeterminate, possibly cysts or hemangiomata (3/3, 4, 7). Pancreas: Normal. Adrenal Glands: Stable 2.7 x 2.0 cm right adrenal nodule with low attenuation characteristic of a lipid rich adenoma (3/17, 4HU). Kidneys and Ureters: Normal. No stones, hydronephrosis, or hydroureter. Peritoneal Cavity/Bowel: Postoperative changes of Diamodn-en-Y gastric bypass surgery. Enteric contrast extends from the alimentary limb into the mid small bowel. No evidence for bowel obstruction or acute inflammatory process. The appendix is not seen. No free fluid, pneumoperitoneum, or adenopathy. Pelvic Organs: The bladder, uterus, and ovaries are within normal limits. Vasculature: Trace atherosclerotic calcifications within the aorta. Bones: Mild degenerative changes within the spine. No acute bony abnormality. Other: None. IMPRESSION: 1. Post Diamond-en-Y gastric bypass surgery. 2. Stable lipid rich right adrenal adenoma. 3. No acute inflammatory or obstructive process identified to explain abdominal pain. RADIA
[2019-02-18] MEDS ORDERED: MORPHINE 10 MG/ML VIAL IVP STA (18:33)
[2019-02-18] MEDS ORDERED: D5.45NS W/20 MEQ KCL 1,000 ML IV STA (18:36)
[2019-02-18] MEDS ORDERED: LIDOCAINE VISCOUS 2% 15 ML UDC MM STA (19:38)
[2019-02-18] MEDS ORDERED: MAG HYDROX/AL HYDROX/SIMETH 30 ML UDC PO STA (19:38)
--- NOTE | 2019-02-18 20:56 | HISTORY & PHYSICAL EXAMINATION ---
Chief Complaint - Chief Complaint Chief Complaint: RUQ abd pain History of Present Illness - Admitted From Admitted From:: [facility] ED - History Obtained From Records Reviewed: yes History obtained from: patient - History of Present Illness HPI Comment/Other: Patient seen on 02/18/19 around 2130pm Patient is a 48 y/o female who presented to the ED today with right upper quadrant pain. This started after having lunch while at work. She had chicken strips and potato tots. Initially it was an ache but now it is a sharp pain with radiation to her back. It is constant pain and rated at 4/10. She was nauseous but no vomiting. She had chills but no fever. She denied chest pain or SALOME. Her last bowel movement was yesterday and regular. Work up in the ED included CBC, CMP, abd US and CT. It has be mostly unremarkable. Patient is being admitted for further management and work up. History - Past Medical History Cardiovascular: reports: High cholesterol Respiratory: reports: None Neuro: reports: None Endocrine/Autoimmune: reports: Type 2 diabetes (patient reports no longer. 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 She lives with her family. She works at [employer] - Substance History Use: Uses substance without health or social issues: NONE - POLST Patient has POLST: No POLST Status: Full Code Meds/Allgy - Home Medications Home Medications: Ambulatory Orders Medication Instructions Recorded Confirmed Atorvastatin [Lipitor] 10 mg PO DAILY 08/10/18 02/18/19 Pantoprazole Sodium [Protonix] 20 mg PO DAILY 08/10/18 02/18/19 hydrALAZINE [Apresoline] 10 mg PO DAILY 08/10/18 02/18/19 - Allergies Allergies/Adverse Reactions: Allergies Allergy/AdvReac Type Severity Reaction Status Date / Time Iodinated Contrast- Oral and Allergy Rash Verified 02/18/19 14:30 IV Dye Penicillins Allergy Hives Verified 02/18/19 14:30 trazodone Allergy Hives Verified 02/18/19 14:30 Review of Systems - Constitutional Constitutional: denies: Fatigue, Fever, Chills, Weakness, Poor appetite, Diaphoresis - Eyes Eyes: denies: Blurred vision, Vision loss, Dipolpia - Ears, Nose & Throat Ears, Nose & Throat: denies: Vertigo, Nasal pain, Sore throat, Hoarseness - Cardiovascular Cariovascular: denies: Irregular heart rate, Chest pain, Edema, Lightheadedness, Syncope, Exertional dyspnea - Respiratory Respiratory: denies: Cough, Sputum production, SOB at rest, SOB with exertion - Gastrointestinal Gastrointestinal: reports: Abdominal pain (RUQ), Nausea. denies: Abdominal dist ention, Diarrhea, Change in bowel habits, Black stools, Vomiting, Bile emesis, Coffee grounds emesis, Reflux/heartburn - Genitourinary Genitourinary: denies: Dysuria, Frequency, Urgency, Hematuria - Musculoskeletal Musculoskeletal: denies: Muscle pain, Back pain, Muscle aches, Limited range of motion, Muscle weakness, Gout - Integumentary Integumentary: denies: Rash, Pruritis, Lesions - Neurological Neurological: denies: General weakness, Focal weakness, Headache, Dizziness - Psychiatric Psychiatric: denies: Depression, Anxiety - Endocrine Endocrine: denies: Polyuria, Polydypsia - Hematologic/Lymphatic Hematologic/Lymphatic: denies: Anemia, Bruising, Petechiae Prior Level of Functionality: Patient is independent of activities of daily living. She works at [facility] [facility] [employer] ED Exam - Vital Signs Vital Signs: Vital Signs x48h Temp Pulse Pulse Resp BP BP Pulse Ox 02/18/19 20:50 36.7 C 64 16 141/72 H 93 02/18/19 20:01 65 16 135/73 H 94 02/18/19 18:53 64 16 145/76 H 95 02/18/19 16:40 36.9 C 71 12 147/79 H 95 02/18/19 14:28 36.2 C L 77 16 147/89 H 98 - Physical Exam General Appearance: positive: Alert, Moderate distress. negative: Lethargic Eyes Bilateral: positive: Normal inspection, PERRL, EOMI ENT: positive: ENT inspection nml, No signs of dehydration Neck: positive: Nml inspection, No JVD, Trachea midline Respiratory: positive: Chest non-tender, No respiratory distress, Breath sounds nml. negative: Wheezes, Rales, Rhonchi Cardiovascular: positive: Regular rate & rhythm, No murmur. negative: Irregularly irregular Abdomen: positive: No organomegaly, No distention, Tenderness. negative: Hepatomegaly, Splenomegaly Back: positive: Nml inspection Skin: positive: Color nml, No rash, Warm, Dry Extremities: positive: Non-tender, Full ROM, Nml appearance, No pedal edema Neurologic/Psychiatric: positive: Oriented x3, CN's nml (2-12) Conclusion/Plan - Problem List (1) Abdominal pain Conclusion/Plan: Etiology undetermined Patient NPO. IV hydration Pain management HIDA scan ordered Qualifiers: Abdominal location: right upper quadrant Qualified Code(s): R10.11 - Right upper quadrant pain (2) Depression Conclusion/Plan: On effexor (3) Hyperlipidemia Conclusion/Plan: On atorvastatin - Lab Results Fish Bones: 02/18/19 14:35 02/18/19 14:35 Core Measures - Anticipated LOS I expect patient to be DC'd or transferred within 96 hours.: Yes - DVT/VTE - Prophylaxis VTE/DVT Device ordered at admit?: Yes VTE/DVT Prophylaxis med ordered at admit?: Yes
[2019-02-18] MEDS ORDERED: DEXTROSE 5%-0.45% NACL 1,000 ML IV SCH (21:00)
[2019-02-18] MEDS ORDERED: diphenhydrAMINE INJ 50 MG/ML VIAL IVP PRN (21:06)
[2019-02-18] MEDS: DEXTROSE 5%-0.45% NACL 1,000 ML IV SCH (21:07)
[2019-02-18] MEDS: SODIUM CHLORIDE FLUSH 0.9% 10 ML SYRINGE IVP SCH (21:39)
[2019-02-19] MEDS: HYDROmorphone 0.5 MG/0.5 ML SYRINGE IVP PRN ×2 (00:35→06:27)
[2019-02-19] MEDS: ONDANSETRON 4 MG/2 ML VIAL IVP PRN ×3 (00:36→11:34)
[2019-02-19 06:09] LABS: BASOPHILS % (AUTO) 0.1 %; EOSINOPHILS % (AUTO) 0.1 %; LYMPHOCYTES # (AUTO) 1.6 10^3/uL (1.5-3.5); LYMPHOCYTES % (AUTO) 37.1 %; MEAN CORPUSCULAR HEMOGLOBIN 28.6 pg (27.0-31.0); MEAN CORPUSCULAR HGB CONC 33.1 g/dL (32.0-36.0); MEAN CORPUSCULAR VOLUME 86.3 fL (81.0-99.0); MEAN PLATELET VOLUME 7.7 fL (7.9-10.8); MONOCYTES # (AUTO) 0.3 10^3/uL (0.0-1.0); MONOCYTES % (AUTO) 6.8 %; NEUTROPHILS # (AUTO) 2.4 10^3/uL (1.5-6.6); NEUTROPHILS % (AUTO) 55.9 %; PLT - PLATELET COUNT 197 10^3/uL (130-450); RED BLOOD COUNT 3.86 10^6/uL (4.20-5.40); RED CELL DISTRIBUTION WIDTH 13.5 % (12.0-15.0); WHITE BLOOD COUNT 4.3 x10^3/uL (4.8-10.8)
[2019-02-19 06:20] LABS: ALBUMIN 3.7 g/dL (3.2-5.5); ALBUMIN/GLOBULIN RATIO 1.8 (1.0-2.2); BILIRUBIN,TOTAL 0.3 mg/dL (0.2-1.0); CALCIUM 8.5 mg/dL (8.5-10.3); CREATININE 0.7 mg/dL (0.4-1.0); TOTAL PROTEIN 5.8 g/dL (6.7-8.2)
[2019-02-19] MEDS: PANTOPRAZOLE 40 MG VIAL IVP SCH (06:27)
[2019-02-19] MEDS: SODIUM CHLORIDE FLUSH 0.9% 10 ML SYRINGE IVP PRN ×5 (06:27→21:56)
[2019-02-19] MEDS: DEXTROSE 5%-0.45% NACL 1,000 ML IV SCH ×2 (06:36→15:59)
[2019-02-19] MEDS ORDERED: ACETAMINOPHEN 1,000 MG/100 ML 100 ML IV PRN (08:39)
[2019-02-19] MEDS: ENOXAPARIN 40 MG/0.4 ML SYRINGE SUBQ SCH (08:42)
[2019-02-19] MEDS: POLYETHYLENE GLYCOL 3350 17 GM PACKET PO SCH (08:42)
[2019-02-19] MEDS: SODIUM CHLORIDE FLUSH 0.9% 10 ML SYRINGE IVP SCH ×2 (08:43→16:05)
[2019-02-19] MEDS ORDERED: DEXAMETHASONE 4 MG/ML VIAL IVP PRN (10:12)
[2019-02-19] MEDS: MORPHINE 2 MG/ML CARPUJECT IVP PRN ×4 (11:33→21:56)
--- NOTE | 2019-02-19 12:23 | PROVIDER PROGRESS NOTE ---
Subjective - Prog Note Date Prog Note Date: 02/19/19 Prog Note Time: 12:20 - Subjective Pt reports feeling: No change Subjective: Reta complains of a new headache, ongoing nausea and abdominal pain. She has not been able to urinate much today, which is new for her usual. She denies chest pain, vomiting, diarrhea, shortness of breath, or a new cough. Current Medications - Current Medications Current Medications: Active Medications: Dexamethasone (Decadron) 4 mg IVP Q4H PRN Diphenhydramine HCl (Benadryl Inj) 25 mg IVP Q6H PRN Enoxaparin Sodium (Lovenox) 40 mg SUBQ DAILY TAMIKO Dextrose/Sodium Chloride (D5.45ns) 1,000 mls @ 100 mls/hr IV .Q10H TAMIKO Acetaminophen (Ofirmev) 100 mls @ 400 mls/hr IV Q6HR PRN Morphine Sulfate (Morphine (Carpuject)) 2 mg IVP Q2HR PRN Ondansetron HCl (Zofran Inj) 4 mg IVP Q4HR PRN Pantoprazole Sodium (Protonix) 40 mg IVP QDAC [facility] Polyethylene Glycol (Miralax) 17 gm PO DAILY [facility] HOME meds: Atorvastatin Calcium 10 mg PO DAILY 02/19/19 Calcium Carbonate/Vitamin D3 [Calcium 500-Vit D3 400 Chew Tb] 1 tab PO DAILY 02/19/19 Docusate Sodium [Dss] 250 mg PO DAILY 02/19/19 Multivitamin [Theragran] 1 tab PO DAILY 02/19/19 Pantoprazole Sodium [Protonix] 40 mg PO QDAC 02/19/19 Venlafaxine HCl [Effexor Xr] 150 mg PO DAILY 02/19/19 hydrOXYzine pamoate [Hydroxyzine Pamoate] 75 mg PO DAILY 02/19/19 Objective - Vital Signs/Intake & Output Reviewed Vital Signs: Yes Vital Signs: Vital Signs x48h Temp Pulse Resp BP Pulse Ox 02/19/19 08:00 36.5 C 63 14 147/71 H 98 02/19/19 05:50 36.7 C 90 16 129/67 97 Intake & Output: Intake & Output 02/16/19 02/17/19 02/18/19 02/19/19 23:59 23:59 23:59 23:59 Intake Total 299 1600 Balance 299 1600 - Objective General Appearance: positive: Alert, Moderate distress Eyes Bilateral: positive: PERRL ENT: positive: Pharynx nml, No signs of dehydration Neck: positive: Thyroid nml, No JVD, Trachea midline Respiratory: positive: Chest non-tender, No respiratory distress, Breath sounds nml Cardiovascular: positive: Regular rate & rhythm, No gallop Peripheral Pulses: 2+ Radial (R), 2+ Radial (L) Abdomen: positive: Tenderness, Guarding, Rebound, Abnml bowel sounds (hypo) Back: positive: Nml inspection Skin: positive: Color nml, No rash, Warm, Dry Extremities: positive: Non-tender, Full ROM, Nml appearance, No pedal edema Neurologic/Psychiatric: positive: Oriented x3, CN's nml (2-12), Motor nml, Sensation nml, Mood/affect nml Reflexes: Bicep (R): 3+, Bicep (L): 3+ - Lab Results Fish Bones: 02/19/19 05:47 02/19/19 05:47 Other Labs: Lab Results x24hrs 02/19/19 02/19/19 02/19/19 Range/Units 05:47 05:47 05:47 WBC 4.3 L (4.8-10.8) x10^3/uL RBC 3.86 L (4.20-5.40) 10^6/uL Hgb 11.0 L (12.0-16.0) g/dL Hct 33.3 L (37.0-47.0) % MCV 86.3 (81.0-99.0) fL MCH 28.6 (27.0-31.0) pg MCHC 33.1 (32.0-36.0) g/dL RDW 13.5 (12.0-15.0) % Plt Count 197 (130-450) 10^3/uL MPV 7.7 L (7.9-10.8) fL Neut # (Auto) 2.4 (1.5-6.6) 10^3/uL Lymph # (Auto) 1.6 (1.5-3.5) 10^3/uL Chambers # (Auto) 0.3 (0.0-1.0) 10^3/uL Eos # (Auto) 0.0 (0.0-0.7) 10^3/uL Baso # (Auto) 0.0 (0.0-0.1) 10^3/uL Absolute Nucleated RBC 0.00 x10^3/uL Nucleated RBC % 0.1 /100WBC Sodium 141 (135-145) mmol/L Potassium 4.1 (3.5-5.0) mmol/L Chloride 102 (101-111) mmol/L Carbon Dioxide 33 H (21-32) mmol/L Anion Gap 6.0 (6-13) BUN 7 (6-20) mg/dL Creatinine 0.7 (0.4-1.0) mg/dL Estimated GFR (MDRD) 90 (>89) Glucose 98 (70-100) mg/dL POC Whole Bld Glucose 90 (70 - 100) mg/dL Lactic Acid (0.5-2.2) mmol/L Calcium 8.5 (8.5-10.3) mg/dL Total Bilirubin 0.3 (0.2-1.0) mg/dL AST 34 (10-42) IU/L ALT 73 H (10-60) IU/L Alkaline Phosphatase 82 (42-121) IU/L Total Protein 5.8 L (6.7-8.2) g/dL Albumin 3.7 (3.2-5.5) g/dL Globulin 2.1 (2.1-4.2) g/dL Albumin/Globulin Ratio 1.8 (1.0-2.2) Lipase (22-51) U/L Urine Color Urine Clarity (CLEAR) Urine pH (5.0-7.5) PH Ur Specific [place] (1.002-1.030) Urine Protein (NEGATIVE) mg/dL Urine Glucose (UA) (NEGATIVE) mg/dL Urine Ketones (NEGATIVE) mg/dL Urine Occult Blood (NEGATIVE) Urine Nitrite (NEGATIVE) Urine Bilirubin (NEGATIVE) Urine Urobilinogen (NORMAL) E.U./dL Ur Leukocyte Esterase (NEGATIVE) Ur Microscopic Review Urine Culture Comments 02/18/19 02/18/19 02/18/19 Range/Units 23:54 19:30 15:38 WBC (4.8-10.8) x10^3/uL RBC (4.20-5.40) 10^6/uL Hgb (12.0-16.0) g/dL Hct (37.0-47.0) % MCV (81.0-99.0) fL MCH (27.0-31.0) pg MCHC (32.0-36.0) g/dL RDW (12.0-15.0) % Plt Count (130-450) 10^3/uL MPV (7.9-10.8) fL Neut # (Auto) (1.5-6.6) 10^3/uL Lymph # (Auto) (1.5-3.5) 10^3/uL Chambers # (Auto) (0.0-1.0) 10^3/uL Eos # (Auto) (0.0-0.7) 10^3/uL Baso # (Auto) (0.0-0.1) 10^3/uL Absolute Nucleated RBC x10^3/uL Nucleated RBC % /100WBC Sodium (135-145) mmol/L Potassium (3.5-5.0) mmol/L Chloride (101-111) mmol/L Carbon Dioxide (21-32) mmol/L Anion Gap (6-13) BUN (6-20) mg/dL Creatinine (0.4-1.0) mg/dL Estimated GFR (MDRD) (>89) Glucose (70-100) mg/dL POC Whole Bld Glucose 90 (70 - 100) mg/dL Lactic Acid 0.5 (0.5-2.2) mmol/L Calcium (8.5-10.3) mg/dL Total Bilirubin (0.2-1.0) mg/dL AST (10-42) IU/L ALT (10-60) IU/L Alkaline Phosphatase (42-121) IU/L Total Protein (6.7-8.2) g/dL Albumin (3.2-5.5) g/dL Globulin (2.1-4.2) g/dL Albumin/Globulin Ratio (1.0-2.2) Lipase (22-51) U/L Urine Color YELLOW Urine Clarity CLEAR (CLEAR) Urine pH 7.0 (5.0-7.5) PH Ur Specific [place] 1.010 (1.002-1.030) Urine Protein NEGATIVE (NEGATIVE) mg/dL Urine Glucose (UA) NEGATIVE (NEGATIVE) mg/dL Urine Ketones NEGATIVE (NEGATIVE) mg/dL Urine Occult Blood TRACE-INTA (NEGATIVE) Urine Nitrite NEGATIVE (NEGATIVE) Urine Bilirubin NEGATIVE (NEGATIVE) Urine Urobilinogen 0.2 (NORMAL) (NORMAL) E.U./dL Ur Leukocyte Esterase NEGATIVE (NEGATIVE) Ur Microscopic Review NOT INDICATED Urine Culture Comments NOT INDICATED 02/18/19 02/18/19 Range/Units 14:35 14:35 WBC 5.8 (4.8-10.8) x10^3/uL RBC 4.18 L (4.20-5.40) 10^6/uL Hgb 12.0 (12.0-16.0) g/dL Hct 35.5 L (37.0-47.0) % MCV 85.0 (81.0-99.0) fL MCH 28.6 (27.0-31.0) pg MCHC 33.7 (32.0-36.0) g/dL RDW 13.2 (12.0-15.0) % Plt Count 243 (130-450) 10^3/uL MPV 7.8 L (7.9-10.8) fL Neut # (Auto) 3.9 (1.5-6.6) 10^3/uL Lymph # (Auto) 1.6 (1.5-3.5) 10^3/uL Chambers # (Auto) 0.3 (0.0-1.0) 10^3/uL Eos # (Auto) 0.0 (0.0-0.7) 10^3/uL Baso # (Auto) 0.0 (0.0-0.1) 10^3/uL Absolute Nucleated RBC 0.00 x10^3/uL Nucleated RBC % 0.0 /100WBC Sodium 141 (135-145) mmol/L Potassium 4.1 (3.5-5.0) mmol/L Chloride 102 (101-111) mmol/L Carbon Dioxide 29 (21-32) mmol/L Anion Gap 10.0 (6-13) BUN 11 (6-20) mg/dL Creatinine 0.6 (0.4-1.0) mg/dL Estimated GFR (MDRD) 107 (>89) Glucose 101 H (70-100) mg/dL POC Whole Bld Glucose (70 - 100) mg/dL Lactic Acid (0.5-2.2) mmol/L Calcium 8.8 (8.5-10.3) mg/dL Total Bilirubin 0.5 (0.2-1.0) mg/dL AST 56 H (10-42) IU/L ALT 104 H (10-60) IU/L Alkaline Phosphatase 93 (42-121) IU/L Total Protein 7.0 (6.7-8.2) g/dL Albumin 4.3 (3.2-5.5) g/dL Globulin 2.7 (2.1-4.2) g/dL Albumin/Globulin Ratio 1.6 (1.0-2.2) Lipase 40 (22-51) U/L Urine Color Urine Clarity (CLEAR) Urine pH (5.0-7.5) PH Ur Specific [place] (1.002-1.030) Urine Protein (NEGATIVE) mg/dL Urine Glucose (UA) (NEGATIVE) mg/dL Urine Ketones (NEGATIVE) mg/dL Urine Occult Blood (NEGATIVE) Urine Nitrite (NEGATIVE) Urine Bilirubin (NEGATIVE) Urine Urobilinogen (NORMAL) E.U./dL Ur Leukocyte Esterase (NEGATIVE) Ur Microscopic Review Urine Culture Comments - Diagnostic Imaging Diagnostic Imaging Results: positive: Final report reviewed Diagnostic Imaging Comments: EXAM: ABDOMEN ULTRASOUND LIMITED, RUQ EXAM DATE: 02/18/2019 03:19 FINDINGS: Liver: Mildly enlarged measuring 19.0 cm. Main portal vein flow: Hepatopetal. Gallbladder: There is a non-mobile lesion in the gallbladder wall, likely a polyp measuring 3 x 4 mm. No gallbladder wall thickening, intraluminal stones, or pericholecystic fluid. Sonographic Pringle's sign reported as negative. Biliary System: CBD measures 3 mm. No intrahepatic or extrahepatic ductal dilatation. Other: The visualized right kidney is unremarkable. Suprarenal lesion measuring 2.2 x 1.9 x 2.0 cm likely represents the adrenal adenoma seen on the prior CT. IMPRESSION: No evidence of cholelithiasis or acute cholecystitis. Gallbladder wall polyp measuring up to 4 mm in diameter. A gallbladder wall polyp of this size could be followed up with serial imaging, although no consensus has been agreed upon as the risk of malignancy is extremely rare. Consider follow-up gallbladder ultrasound in 12 months. Mild hepatomegaly. EXAM: CT ABDOMEN AND PELVIS 02/18/2019: FINDINGS: Lung Bases: Mild dependent atelectasis. Liver: Normal. No focal hepatic lesion. Gallbladder/Bile Ducts: Unremarkable. No visualized stones or biliary ductal dilatation. Spleen: Normal size. Multiple (at least 5) unchanged small circumscribed hypoattenuating foci in the superior spleen measuring up to 13 mm, indeterm inate, possibly cysts or hemangiomata. Pancreas: Normal. Adrenal Glands: Stable 2.7 x 2.0 cm right adrenal nodule with low attenuation characteristic of a lipid rich adenoma (3/17, 4HU). Kidneys and Ureters: Normal. No stones, hydronephrosis, or hydroureter. Peritoneal Cavity/Bowel: Postoperative changes of Diamond-en-Y gastric bypass surgery. Enteric contrast extends from the alimentary limb into the mid small bowel. No evidence for bowel obstruction or acute inflammatory process. The appendix is not seen. No free fluid, pneumoperitoneum, or adenopathy. Pelvic Organs: The bladder, uterus, and ovaries are within normal limits. Vasculature: Trace atherosclerotic calcifications within the aorta. Bones: Mild degenerative changes within the spine. No acute bony abnormality. IMPRESSION: 1. Post Diamond-en-Y gastric bypass surgery. 2. Stable lipid rich right adrenal adenoma. 3. No acute inflammatory or obstructive process identified to explain abdominal pain. ABX Reporting Has patient been on IV antibiotics over the past 48 hours?: No Assessment/Plan - Problem List (1) Gastritis Impression: - Suspect this as a generalized term in regards to not ruling in for gallbladder involvement despite a polyp being appreciated on the abdominal US - Food eaten yesterday was not her usual routine - Case was discussed with Dr. Borrero, who will not sign on at this point, unless her condition becomes worse Plan: Continue clear liquid diet, treat nausea with Reglan, as needed Zofran Qualifiers: Gastritis type: unspecified gastritis Gastritis bleeding: without bleeding (2) Abdominal pain Impression: - Predominately RUQ, worse with palpation - Some relief after getting pain meds - Added tylenol IV, changed dilaudid to morphine Plan: Continue to monitor, if no improvement consider further imaging, and/or general surgery consult Qualifiers: Abdominal location: right upper quadrant Qualified Code(s): R10.11 - Right upper quadrant pain (3) Dysuria Impression: - Patient states that she has had to physically push on her bladder for it to empty this morning - Denies previous episodes - Dilaudid has been changed to morphine in the event this is the culprit - May also be due to high stool burden- no BM since yesterday per patient Plan: continue to scan bladder, straight cath if needed for continued high residuals (4) Acute urinary retention Impression: - Patient had a last known UTI in our [facility] EMR on 01/03/2019 which showed Enterobacter Cloacae complex - Patient has been on dilaudid IV since arriving in the ED - Symptoms started this morning and ongoing - Bladder scans ordered to be done for post void residuals and Q shift - Last bladder scan showed 524 mL after she attempted to void - Her enlarged bladder may be contributing to her abdominal discomfort - Dilaudid may cause anti-cholenergic symptoms; tachycardia, dry mouth, palpitations, or urinary retention (frequency is not defined) - Changing to morphine to see if this resolves Plan: Continue bladder scans, consider straight cath if this continues, changed dilaudid to morphine to be used sparingly (5) Elevated LFTs Impression: - Admission LFTs were concerning with an elevated AST of 56, now improved to 34, and an elevated ALT of 104, now improved to 73 - Normal alk phos, normal bili - Adding a GGT in the AM, although she denies a ETOH history - Adding TSH, A1C and triglyceride level in the AM - Holding home statin Plan: Continue to treat acute illness, monitor for improvement (6) Nausea and vomiting Impression: - Patient admitted to vomiting this morning - Starting scheduled Reglan IV Q6H for continued symptoms Plan: Continue to monitor for improvement, continue Reglan, zofran as needed, PPI and advance diet when tolerated (7) GERD (gastroesophageal reflux disease) Impression: - After reviewing her EGD report, biopsies were obtained and there was physical evidence of esophageal erosion per Dr. Borrero in September 2018 - Takes a PPI at home, continued here in IV form Plan: Continue med, treat symptoms (8) History of Diamond-en-Y gastric bypass Impression: - Dr. Borrero did an EGD/colonoscopy in September 2018, which was noted to have this condition - Patient states she has lost about 108 lbs in the past year - She states that the chicken strips and tater tots were maybe too much to eat for her, compared to her usual food intake Plan: continue to treat symptoms, advance diet as tolerated (9) Headache Impression: - Patient states that she is not one to normally get headaches - Located on the top of her head and in the frontal forehead - Denies a smoking history or sinusitis - Added Dexamethasone IV, as needed Plan: Continue to monitor Qualifiers: Headache type: tension-type Headache chronicity pattern: acute headache (10) Adrenal nodule Impression: - Similar to prior imaging, stable - Measures 2.2 x 1.9 x 2.0 cm - The imaging characteristics of adrenal masses are summarized: - For Benign adenomas - Round and homogeneous density, smooth contour and sharp margination - Diameter less than 4 cm, unilateral location - Low unenhanced CT attenuation values (<10 HU) - Rapid contrast medium washout (10 minutes after administration of contrast, an absolute contrast medium washout of more than 50 percent) - Isointensity with liver on both T1 and T2 weighted MRI sequences - Chemical shift evidence of lipid on MRI - Per UpToDate: Most adrenal nodules do not cause any symptoms and are found only when imaging studies (CT scans, MRIs) are obtained to evaluate symptoms related to another problem. Plan: Should be followed by her PCP
[2019-02-19] MEDS: METOCLOPRAMIDE 10 MG/2 ML VIAL IVP SCH (19:09)
[2019-02-20] MEDS: METOCLOPRAMIDE 10 MG/2 ML VIAL IVP SCH ×2 (00:08→06:27)
[2019-02-20] MEDS: SODIUM CHLORIDE FLUSH 0.9% 10 ML SYRINGE IVP SCH ×2 (00:08→06:34)
[2019-02-20] MEDS: DEXTROSE 5%-0.45% NACL 1,000 ML IV SCH (02:45)
[2019-02-20 05:25] LABS: BASOPHILS % (AUTO) 0.1 %; EOSINOPHILS % (AUTO) 0.1 %; HGB - HEMOGLOBIN 11.1 g/dL (12.0-16.0); LYMPHOCYTES # (AUTO) 1.4 10^3/uL (1.5-3.5); LYMPHOCYTES % (AUTO) 35.4 %; MEAN CORPUSCULAR HEMOGLOBIN 28.8 pg (27.0-31.0); MEAN CORPUSCULAR HGB CONC 33.8 g/dL (32.0-36.0); MEAN CORPUSCULAR VOLUME 85.1 fL (81.0-99.0); MEAN PLATELET VOLUME 7.6 fL (7.9-10.8); MONOCYTES # (AUTO) 0.2 10^3/uL (0.0-1.0); MONOCYTES % (AUTO) 5.8 %; NEUTROPHILS # (AUTO) 2.3 10^3/uL (1.5-6.6); NEUTROPHILS % (AUTO) 58.6 %; PLT - PLATELET COUNT 197 10^3/uL (130-450); RED BLOOD COUNT 3.85 10^6/uL (4.20-5.40); RED CELL DISTRIBUTION WIDTH 13.3 % (12.0-15.0); WHITE BLOOD COUNT 3.9 x10^3/uL (4.8-10.8)
[2019-02-20 05:39] LABS: ALBUMIN 3.6 g/dL (3.2-5.5); ALBUMIN/GLOBULIN RATIO 1.6 (1.0-2.2); BILIRUBIN,TOTAL 0.4 mg/dL (0.2-1.0); CALCIUM 8.7 mg/dL (8.5-10.3); CREATININE 0.7 mg/dL (0.4-1.0); TOTAL PROTEIN 5.8 g/dL (6.7-8.2)
[2019-02-20 05:40] LABS: HB2 TOTAL 11.4 g/dL; HEMOGLOBIN A1C 0.42 g/dL; HEMOGLOBIN A1C % 5.5 % (4.6-6.2)
[2019-02-20] MEDS ORDERED: oxyCODONE 5 MG TABLET PO PRN (06:15)
[2019-02-20] MEDS: PANTOPRAZOLE 40 MG VIAL IVP SCH (06:27)
[2019-02-20] MEDS ORDERED: SODIUM CHLORIDE 0.9% 1,000 ML IV SCH (08:00)
[2019-02-20] MEDS ORDERED: VENLAFAXINE ER 75 MG CAPSULE PO SCH (09:00)
[2019-02-20] MEDS: ENOXAPARIN 40 MG/0.4 ML SYRINGE SUBQ SCH (09:20)
[2019-02-20] MEDS: POLYETHYLENE GLYCOL 3350 17 GM PACKET PO SCH (09:20)
[2019-02-20] MEDS ORDERED: METOCLOPRAMIDE 10 MG/2 ML VIAL IVP PRN (10:28)
[2019-02-20] MEDS ORDERED: SENNA 8.6 MG TABLET PO SCH (11:00)
[2019-02-20] MEDS ORDERED: DOCUSATE SODIUM 250 MG CAPSULE PO SCH (11:00)
[2019-02-20] MEDS ORDERED: GADOBUTROL 10 MMOL/10 ML VIAL ONE (13:22)
[2019-02-20] MEDS ORDERED: GADOBUTROL 10 MMOL/10 ML VIAL IVP ONE ×2 (14:00→20:04)
[2019-02-20] MEDS: MORPHINE 2 MG/ML CARPUJECT IVP PRN (14:58)
[2019-02-20] MEDS: ONDANSETRON 4 MG/2 ML VIAL IVP PRN (14:58)
[2019-02-20 15:49] VITALS: BP 133/74
--- NOTE | 2019-02-20 16:02 | MRI Report ---
Reason: abdominal pain Procedure Date: 02/20/2019 Accession Number: [id number] / [id number] Procedure: MRI - MRCP W/WO CPT Code: FULL RESULT: EXAM: MR ABDOMEN WITH AND WITHOUT CONTRAST EXAM DATE: 02/20/2019 02:55 PM. CLINICAL HISTORY: Abdominal pain. COMPARISON: ABDOMEN/PELVIS W/ 02/18/2019 5:06 PM ABDOMEN LIMITED 02/18/2019 2:49 PM. TECHNIQUE: Multiplanar breath-hold T1, T2, and DWI sequences obtained through the abdomen on an MR scanner. Images obtained before and after administration of 8 cc Gadavist intravenous contrast. FINDINGS: Lung Bases: Unremarkable. Liver: There is an elongated Juancarlos's right hepatic lobe. The overall liver size appears normal. Overall liver signal intensity is normal without evidence of fatty infiltration. In hepatic segment 2, there is a 1 cm nodular focus which is hyperintense on T2 (701/37) and shows arterial hyperenhancement (701/104) which persists on portal venous phase (801/104), suggesting a flash-fill hemangioma. No other focal hepatic lesions are identified. Gallbladder: The gallbladder is partially distended and appears normal with no wall thickening or stone. The tiny gallbladder polyp suggested on the ultrasound is not clearly identified on this study. Pancreas: The pancreas appears normal with no mass or ductal dilatation. Spleen: There are a few tiny peripheral splenic cysts. Otherwise normal. Adrenal glands: 2.6 cm oval lipid rich adenoma superiorly in the right adrenal gland. Left adrenal gland is unremarkable. Kidneys: Tiny cyst in the posterior lower pole of the left kidney. Otherwise unremarkable. No hydronephrosis. Bowel: The small bowel and colon appear normal with no inflammation or obstruction. Retroperitoneum: The retroperitoneal structures appear normal with no mass or lymphadenopathy. IMPRESSION: 1. No clear findings to explain abdominal pain. 2. 1 cm cavernous hemangioma in hepatic segment 2. 3. 2.6 cm right adrenal lipid rich adenoma. RADIA
--- NOTE | 2019-02-20 16:43 | Discharge Plan ---
Discharge Plan Disposition: Home, Self Care Condition: Poor Prescriptions: oxyCODONE [Roxicodone] 5 mg PO Q4HR PRN #20 tablet PRN Reason: Pain Diet: Regular Activity Restrictions: Activity as Tolerated Shower Restrictions: No (fall precaution) Instruction Topics: Abdominal Pain, Oxycodone tablets or capsules Additional Instructions or Follow Up instructions: you may followup your PCP in one week, and followup accounting support specialist as out- pt. Your CT of abdomen, MRCP, and US of abdomen all are unremarkable. Should your symptoms return or worsen, you may present ER, call 911 or your PCP for help. No Smoking: If you smoke, Please STOP! Call for help. Follow-up with: Eduardo Cam ARNP [Primary Care Provider] -
--- NOTE | 2019-02-20 16:49 | DISCHARGE SUMMARY ---
Discharge Summary Discharge Date: 02/20/19 Discharging Provider: CONNOLLY Primary Care Provider: Andrew Mckeon Condition at Discharge: Poor Discharge Disposition: 01 Home, Self Care Discharge Facility Name: home - DIAGNOSES Admission Diagnoses: (1) Abdominal pain (2) Depression (3) Hyperlipidemia Discharge Diagnoses with Status of Each Condition: (1) Abdominal pain (2) Depression (3) Hyperlipidemia (4)nausea and vomiting (5)GERD (6)hx of Diamond-en-y gastric bypass (7)chronic constipation - HPI History of Present Illness: refer from Dr. Phillips's HPI on 02/18/19 Patient seen on 02/18/19 around 2130pm Patient is a 48 y/o female who presented to the ED today with right upper quadrant pain. This started after having lunch while at work. She had chicken strips and potato tots. Initially it was an ache but now it is a sharp pain with radiation to her back. It is constant pain and rated at 4/10. She was nauseous but no vomiting. She had chills but no fever. She denied chest pain or SALOME. Her last bowel movement was yesterday and regular. Work up in the ED included CBC, CMP, abd US and CT. It has be mostly unremarkable. Patient is being admitted for further management and work up. - HOSPITAL COURSE Hospital Course: (1) Abdominal pain resolved. pt also tolerate regular diet. she stated she was ready and happy to be d/c to home all pt's image studies including US, CT and MRCP of abdomen are unremarkable. pt report she had a similar episode of abdominal upper right quadrant pain with all negative image studies about 5 yrs ago. (2) Depression stable, continue home meds, followup her PCP (3) Hyperlipidemia stable, continue home meds, followup her PCP (4)nausea and vomiting resolved (5)GERD stable, continue home meds protonix, followup PCP (6)hx of Diamond-en-y gastric bypass stable, discussed with pt and followup PCP for all nutrition factors study including B12, folic acid, iron, Ca, phosphorus, mag. (7)chronic constipation stable, continue home meds, followup PCP - ALLERGIES Allergies/Adverse Reactions: Allergies Allergy/AdvReac Type Severity Reaction Status Date / Time Iodinated Contrast- Oral and Allergy Rash Verified 02/18/19 14:30 IV Dye Penicillins Allergy Hives Verified 02/18/19 14:30 trazodone Allergy Hives Verified 02/18/19 14:30 - MEDICATIONS Home Medications: Ambulatory Orders Medication Instructions Recorded Confirmed Atorvastatin Calcium 10 mg PO DAILY 02/19/19 02/19/19 Calcium Carbonate/Vitamin D3 1 tab PO DAILY 02/19/19 02/19/19 [Calcium 500-Vit D3 400 Chew Tb] Docusate Sodium [Dss] 250 mg PO DAILY 02/19/19 02/19/19 Multivitamin [Theragran] 1 tab PO DAILY 02/19/19 02/19/19 Pantoprazole Sodium [Protonix] 40 mg PO QDAC 02/19/19 02/19/19 Venlafaxine HCl [Effexor Xr] 150 mg PO DAILY 02/19/19 02/19/19 hydrOXYzine pamoate [Hydroxyzine 75 mg PO DAILY 02/19/19 02/19/19 Pamoate] oxyCODONE [Roxicodone] 5 mg PO Q4HR PRN #20 tablet 02/20/19 - PHYSICAL EXAM AT DISCHARGE General Appearance: positive: No acute distress, Alert. negative: Lethargic Eyes Bilateral: positive: Normal inspection, PERRL, No lid inflammation, Conjunctivae nml ENT: positive: ENT inspection nml, Pharynx nml, No signs of dehydration. negative: Purulent nasal drainage, Pharyngeal erythema, Oral lesions Neck: positive: Nml inspection, Thyroid nml, No JVD, Trachea midline. negative: Thyromegaly, Lymphadenopathy (R), Lymphadenopathy (L), Stiff neck, Swelling/bruising, Tracheal deviation Respiratory: positive: Chest non-tender, No respiratory distress, Breath sounds nml. negative: Wheezes, Rales, Rhonchi Cardiovascular: positive: Regular rate & rhythm, No murmur, No gallop. negative: Irregularly irregular, Extrasystoles, Tachycardia, Bradycardia, Systolic murmur, Diastolic murmur Peripheral Pulses: positive: 2+ Abdomen: positive: Non-tender, No organomegaly, Nml bowel sounds, No distention. negative: Tenderness, Guarding, Rebound Back: positive: Nml inspection. negative: CVA tenderness (R), CVA tenderness (L) Skin: positive: Color nml, No rash, Warm, Dry. negative: Cyanosis, Diaphoresis, Pallor Extremities: positive: Non-tender, Full ROM, Nml appearance. negative: Calf tenderness, Joint swelling, Lindsey's sign/cords Neurologic/Psychiatric: positive: Oriented x3, Motor nml, Sensation nml, Mood/affect nml. negative: Weakness, Sensory loss, Facial droop, Slurred/abnml speech, Depressed mood/affect - LABS Result Diagrams: 02/20/19 05:13 02/20/19 05:13 - FOLLOW UP Follow Up: you may followup your PCP in one week, and followup water softener service supervisor as out- pt. Your CT of abdomen, MRCP, and US of abdomen all are unremarkable. Should your symptoms return or worsen, you may present ER, call 911 or your PCP for help. - TIME SPENT Time Spent in Discharge (Minutes): 60
== END 2019-02-20 17:45 | disposition home or self-care (01) ==
LOC: ED 14:22 → MS2 20:03
PROVIDERS: ADMIT Internal Medicine; ATTEND Nurse Practitioner Gerontology
DX: R10.11 Right upper quadrant pain (principal); F32.9 Major depressive disorder, single episode, unspecified; E78.5 Hyperlipidemia, unspecified; R11.2 Nausea with vomiting, unspecified; K21.9 Gastro-esophageal reflux disease without esophagitis; Z98.84 Bariatric surgery status; K59.09 Other constipation; K29.70 Gastritis, unspecified, without bleeding; R30.0 Dysuria; R33.9 Retention of urine, unspecified; Z87.440 Personal history of urinary (tract) infections; R74.0 Nonspecific elevation of levels of transaminase and lactic acid dehydrogenase [LDH]; R51 Headache; D35.01 Benign neoplasm of right adrenal gland; K82.4 Cholesterolosis of gallbladder
CPT/HCPCS: 36415; 74177; 74183; 76705; 80053; 81003; 82977; 83036; 83605; 83690; 83735; 84134; 84478; 85025; 96361; 96365; 96372; 96375; 96376; 99283; 99284; A9270; A9585; G0378; J0131; J1170; J1200; J1650; J2765; Q9967; 81001; 82306; 82607; 82728; 82747; 83540; 83615; 83970; 84443; 84466; 84703; 87086